=== PATIENT | female | born 2000 | race African-American/Black ===

== ENCOUNTER 2021-12-24 23:56 | Emergency (ER) | payer MEDICAID ==
[~2021-12-24] VITALS: Ht 162.6 cm; Wt 103.0 kg
[2021-12-25] MEDS ORDERED: CEPH500T MT (02:08)
[2021-12-25] MEDS ORDERED: BACITRACIN ZINC OINT UDPKT TOP ONE (02:15)
[2021-12-25] MEDS ORDERED: TETANUS, DIPHTHERIA, PERTUSSIS VAC/PF 0.5ML (>10YR OLD) IM ONE (02:15)
[2021-12-25 02:35] VITALS: BP 126/70
== END 2021-12-25 02:45 | disposition home or self-care (01) ==
LOC: ER 23:56
DX: T63.301A Toxic effect of unspecified spider venom, accidental (unintentional), initial encounter (principal); J45.909 Unspecified asthma, uncomplicated; Z88.6 Allergy status to analgesic agent; Y92.89 Other specified places as the place of occurrence of the external cause
CPT/HCPCS: 90471; 90715; 99283